=== PATIENT | male | born 1950 | race Caucasian/White ===

== ENCOUNTER 2022-06-10 22:35 | Emergency (ER) | payer OTHER, MEDICARE, SELFPAY ==
[2022-06-10] VITALS (8 sets, daily range): BP systolic 150–204; BP diastolic 68–86; PULSE 80–88; RESP 15–21; TEMP 36.6–36.7; O2SAT 94–99
--- NOTE | ~2022-06-10 | XR_ITS ---
EXAMINATION: XR chest 1V portable DATE: 06/10/2022 23:41 INDICATION: Shortness of breath. Palpitations. TECHNIQUE: frontal view of the chest was obtained. COMPARISON: None FINDINGS: The lungs are clear with no focal airspace opacities, pulmonary edema, pleural effusion or pneumothor ax. The cardiomediastinal silhouette is normal. Visualized bones and soft tissues are unremarkable. IMPRESSION: 1. No acute cardiopulmonary disease. Reviewed, dictated and finalized at location A.
--- NOTE | 2022-06-10 22:44 | ECG_ITS ---
Measurements Intervals [place] Rate: 84 P: 41 MN: 136 QRS: -18 QRSD: 102 T: 48 QT: 376 QTc: 447 Interpretive Statements SINUS RHYTHM BORDERLINE ST-T WAVE ABNORMALITY- ANT/INF LEADS BORDERLINE ECG NO PREVIOUS ECG AVAILABLE FOR COMPARISON Electronically Signed On 06-11-2022 7:54:23 CDT by Davide Box D.O.
--- NOTE | 2022-06-10 23:16 | ED.GENADULT ---
HPI - General Adult General Chief complaint: Arrhythmia/Palpitations Stated complaint: tachycardia/cardiac issues Time Seen by Provider: 06/10/22 22:48 History of Present Illness HPI narrative: Patient 72-year-old gentleman who presents the emergency department with chief complaint of palpitations. Patient reports that he was sitting down to watch soccer and started getting sweaty and felt as though his heart was beating fast. Patient reports that his Apple Watch reported that his heart rate was 130 patient states the symptoms lasted for about 30 minutes. Patient states currently he feels much better is not having any chest pain and reports that his heart rate has slowed down. Patient also reports that for some time he has been having some shortness of breath Course Vital Signs Vital signs: Vital Signs Temperature 36.7 C 06/10/22 22:37 Pulse Rate 80 06/10/22 22:37 Respiratory Rate 18 06/10/22 22:37 Blood Pressure 204/76 H 06/10/22 22:37 Pulse Oximetry 99 06/10/22 22:37 Oxygen Delivery Room Air 06/10/22 22:37 Temperature 36.6 C 06/10/22 23:00 Pulse Rate 80 06/11/22 00:47 Respiratory Rate 19 06/11/22 00:02 Blood Pressure 148/80 H 06/11/22 00:02 Pulse Oximetry 91 06/11/22 00:02 Oxygen Delivery Room Air 06/10/22 22:37 Medical Decision Making [facility] Narrative Medical decision making narrative: Differential diagnosis includes ACS, dysrhythmia electrolyte abnormality EKG interpreted by me sinus rhythm rate of [address] elevation or ST depression Laboratory studies were obtained showed a white blood cell count of 12.1 electrolytes are within normal limits troponin is less than 0.12 Chest x-ray interpreted by me showed no evidence of focal infiltrate. Vital Signs Vital Signs: Vital Signs Temperature 36.7 C 06/10/22 22:37 Pulse Rate 80 06/10/22 22:37 Respiratory Rate 18 06/10/22 22:37 Blood Pressure 204/76 H 06/10/22 22:37 Pulse Oximetry 99 06/10/22 22:37 Oxygen Delivery Room Air 06/10/22 22:37 Temperature 36.6 C 06/10/22 23:00 Pulse Rate 80 06/11/22 00:47 Respiratory Rate 19 06/11/22 00:02 Blood Pressure 148/80 H 06/11/22 00:02 Pulse Oximetry 91 06/11/22 00:02 Oxygen Delivery Room Air 06/10/22 22:37 Lab Data 06/10/22 23:27 06/10/22 23:27 Labs: Lab Results 06/10/22 06/10/22 06/10/22 Range/Units 23:27 23:27 23:27 WBC 12.1 H (4.5-10.0) K/mm3 RBC 5.03 (4.6-6.20) M/mm3 Hgb 15.2 (14.0-18.0) g/dL Hct 47.7 (42.0-52.0) % MCV 94.8 (80-100) fl MCH 30.2 (26-34) pg MCHC 31.9 L (32-36) g/dl RDW 13.2 (11.5-14.5) % Plt Count 316 (150-375) k/mm3 MPV 9.6 (7.4-10.4) fl Immature Gran % (Auto) 0.3 (0-0.5) % Neut % (Auto) 63.6 (45.5-73.1) % Lymph % (Auto) 21.4 (18.3-44.2) % [place] % (Auto) 9.0 H (2.6-8.5) % Eos % (Auto) 5.0 H (0-4.4) % Baso % (Auto) 0.7 (0.2-1.2) % Lymph # (Auto) 2.58 (0.9-3.2) K/mm3 [place] # (Auto) 1.1 H (0.1-0.6) K/mm3 Eos # (Auto) 0.6 H (0-0.3) K/mm3 Baso # (Auto) 0.1 (0.0-0.1) K/mm3 Abs Immat Gran (auto) 0.04 H (0.00-0.031) K/mm3 Absolute Neuts (auto) 7.7 H (1.3-6.7) K/mm3 Absolute Nucleated RBC 0.0 (0.0-0.012) K/mm3 Nucleated RBC % 0.0 (0.0-0.2) % PT 12.8 (11.1-14.7) Seconds INR 1.0 APTT 31.4 (22.3-36.8) SECONDS Sodium 139 (137-145) mmol/L Potassium 3.9 (3.4-5.0) mmol/L Chloride 101 (98-107) mmol/L Carbon Dioxide 31 H (22-30) mmol/L Anion Gap 7 L (8-16) mmol/L BUN 20 (9-20) mg/dL Creatinine 1.10 (0.7-1.3) mg/dL Estim Creat Clear Calc 72 ml/min Estimated GFR > 60 (59 - ) Glucose 109 (65-110) mg/dL Calcium 9.1 (8.4-10.2) mg/dL Magnesium 2.5 H (1.6-2.3) mg/dL Total Bilirubin 0.5 (0.2-1.3) mg/dL AST 29 (17-59) U/L ALT 27 (6-50) U/L Alkaline Phosphatase 85 (38-126) U/L Troponin I < 0.012 (0.
[2022-06-10 23:36] LABS: Basophils Absolute Auto 0.1 K/mm3 (0.0-0.1); Basophils Percent Auto 0.7 % (0.2-1.2); Eosinophils Absolute Auto 0.6 K/mm3 (0-0.3); Hematocrit 47.7 % (42.0-52.0); Hemoglobin 15.2 g/dL (14.0-18.0); Immature Granulocyte Absolute 0.04 K/mm3 (0.00-0.031); Immature Granulocyte Percent A 0.3 % (0-0.5); Lymphocytes Absolute Auto 2.58 K/mm3 (0.9-3.2); Lymphocytes Percent Auto 21.4 % (18.3-44.2); Mean Corpuscular HGB Conc 31.9 g/dl (32-36); Mean Corpuscular Hemoglobin 30.2 pg (26-34); Mean Corpuscular Volume 94.8 fl (80-100); Mean Platelet Volume 9.6 fl (7.4-10.4); Monocytes Absolute Auto 1.1 K/mm3 (0.1-0.6); Neutrophils Absolute Auto 7.7 K/mm3 (1.3-6.7); Neutrophils Percent Auto 63.6 % (45.5-73.1); Platelet Count Result 316 k/mm3 (150-375); Red Blood Count 5.03 M/mm3 (4.6-6.20); Red Cell Distribution Width 13.2 % (11.5-14.5); White Blood Count 12.1 K/mm3 (4.5-10.0)
[2022-06-10 23:48] LABS: Prothrombin Time 12.8 Seconds (11.1-14.7)
[2022-06-10 23:50] LABS: Partial Thromboplastin Time 31.4 SECONDS (22.3-36.8)
[2022-06-11] VITALS: PULSE 86; RESP 21; O2SAT 94
[2022-06-11 00:02] VITALS: BP 148/80; PULSE 83; RESP 19; O2SAT 91
[2022-06-11 00:32] LABS: Alanine Aminotransferase 27 U/L (6-50); Albumin Level 4.4 g/dL (3.5-5.1); Alkaline Phosphatase 85 U/L (38-126); Anion Gap 7 mmol/L (8-16); Aspartate Amino Transferase 29 U/L (17-59); Bilirubin,Total 0.5 mg/dL (0.2-1.3); Blood Urea Nitrogen 20 mg/dL (9-20); Calcium 9.1 mg/dL (8.4-10.2); Carbon Dioxide 31 mmol/L (22-30); Chloride 101 mmol/L (98-107); Estimated CRCL calculation 72 ml/min; Estimated Glomerular Filt Rate > 60; Glucose 109 mg/dL (65-110); Lipase 88 U/L (23-300); Magnesium 2.5 mg/dL (1.6-2.3); NT Pro B Type Natriuretic Pept 40 pg/mL (19.9-100); Potassium 3.9 mmol/L (3.4-5.0); Sodium 139 mmol/L (137-145); Troponin I < 0.012 ng/mL (0.000-0.034)
[2022-06-11 00:47] VITALS: PULSE 80
[2022-06-11 01:26] VITALS: BP 141/89; PULSE 84; RESP 18; TEMP 36.6; O2SAT 99
== END 2022-06-11 01:26 | disposition home or self-care (01) ==
PROVIDERS: Emergency Provider Emergency Medicine; PCP Internal Medicine
DX: R00.2 Palpitations (principal)
CPT/HCPCS: 36415; 71045; 80053; 83690; 83735; 83880; 84484; 85025; 85610; 85730; 93005; 99283; 99284

== ENCOUNTER 2024-11-03 14:13 | Outpatient (CLI) | payer OTHER, MEDICARE, SELFPAY ==
--- NOTE | ~2024-11-03 | US_ITS ---
US retroperitoneal comp 11/03/2024 15:00 Procedure: Realtime transabdominal ultrasound of the kidneys and bladder. Indication: Chronic kidney disease Comparison: No prior studies for comparison. Findings: Renal echotexture is normal bilaterally without hydronephrosis, contour deforming mass or r enal calculus. The right kidney measures 9.9 cm and left kidney measures 11 cm. Bladder within nor mal limits. There right renal cysts, largest measuring 3.2 cm. Impression: 1: Right renal cysts. Reviewed, dictated and finalized at location A. Impression: 1: Right renal cysts.
--- OUTSIDE RECORDS SUMMARY | 2024-11-03 14:25 | XMS_ITS | Clinical Summary ---
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 Name Role Phone Deven Asif MD Primary Care Provider Encounters Date Type Department Care Team Description 09/30/2024 2:14 PM CDT - 09/30/2024 11:59 PM CDT Hospital Encounter [facility] [place] [address] Carson Sutton MD Discharge Disposition: Home or Self Care (Routine Discharge) 09/30/2024 Travel 09/29/2024 8:32 AM CDT - 09/29/2024 11:59 PM CDT Hospital [facility] [place] [address] Carson Sutton MD Discharge Disposition: Home or Self Care (Routine Discharge) 09/29/2024 Orders Only [facility] [place] [address] Carson Sutton MD 09/29/2024 Travel from Last 3 Months Social History Tobacco Use Types Packs/Day Years Used Date Smoking Tobacco: Never Assessed Sex and Gender Information Value Date Recorded Sex Assigned at Male 09/29/2024 8:16 AM CDT Legal Sex Male 8:16 AM CDT Gender Identity Not on file Sexual Orientation Not on file Plan of Treatment Health Maintenance Due Date Last Done Comments Colorectal Cancer Screening Colonoscopy (10 Years) 1950 Lipid Panel 1950 Diabetes: Retinopathy Eye Exam 1969 Hepatitis C 1968 Annual Medicare Wellness Visit 02/23/2016 COVID-19 Vaccine ( season) 2023 01/11/2023, 10/17/2021, 03/29/2021, Additional history exists Hemoglobin A1C 03/31/2025 09/29/2024 Kidney Health Evaluation 09/29/2025 09/29/2024, 09/02 RSV Immunization or 60+ Years (1 - 1-dose 75+ series) 2026 DTaP, Tdap and Td Vaccines (3 - Td or Tdap) 01/27/2032 01/26/2022, 05/27/2014 Pneumococcal Vaccine: 50+ Years Completed 06/23/2019, 03/21/2018 Zoster Vaccines Completed 05/25/2020, 11/18/2019 Meningococcal B Vaccine Aged Out No l onger eligible based on patient's age to complete this topic Meningococcal Vaccine Aged Out No leann gardenia eligible based on patient's age to complete this topic RSV Immunizations Under 20 Months Aged Out No longer eligible based on patient's age to complete this topic Procedures Procedure Name Priority Date/Time Associated Diagnosis Comments PROTEIN TOTAL URINE 24 HR Routine 09/29/2024 1:00 PM CDT Chronic renal disease, stage III (CMS/HCC) HTN (hypertension) Type 2 diabetes mellitus with hyperglycemia ([facility] HHS/HCC) Edema Screening for prostate cancer Hyperparathyroidism, unspecified ([facility]/HCC) Vitamin D deficiency Frequent urination Abnormal urine findings Urinary tract infection, site not specified Urinary frequency History of prostate cancer CREATININE URINE 24 HR Routine 09/29/2024 1:00 PM CDT Chronic renal disease, stage III (CMS/HCC) HTN (hypertension) Type 2 diabetes mellitus with hyperglycemia ([facility]/HCC HHS/HCC) Edema Screening for prostate cancer Hyperparathyroidism, unspecified (HHS/HCC) Vitamin D deficiency Frequent urination Abnormal urine findings Urinary tract infection, site not specified Urinary frequency History of prostate cancer CBC W/DIFF AUTOMATED Routine 09/29/2024 9:02 AM CDT Chronic renal disease, stage III (CMS/HCC) HTN (hypertension) Type 2 diabetes mellitus with hyperglycemia ([facility]/HCC HHS/HCC) Frequent urination Abnormal urine findings Urinary tract infection, site not specified VITAMIN D, 25 OH Routine 09/29/2024 8:53 AM CDT Vitamin D deficiency PTH - INTACT Routine 09/29/2024 8:53 AM CDT Chronic renal disease, stage III (CMS/HCC) HTN (hypertension) Type 2 diabetes mellitus with hyperglycemia (CMS/HCC HHS/HCC) Edema Screening for prostate cancer Hyperparathyroidism, unspecified (HHS/HCC) Vitamin D deficiency PROSTATE SPECIFIC ANTIGEN,SCREENING Routine 09/29/2024 8:53 AM CDT Chronic renal disease, stage III (CMS/HCC) HTN (hypertension) Type 2 diabetes mellitus with hyperglycemia (CMS/HCC HHS/HCC) Edema Screening for prostate cancer Hyperparathyroidism, unspecified (HHS/HCC) Vitamin D deficiency HEMOGLOBIN, GLYCOSYLATED Routine 09/29/2024 8:53 AM CDT Chronic renal disease, stage III (CMS/HCC) HTN (hypertension) Type 2 diabetes mellitus with hyperglycemia (CMS/HCC HHS/HCC) Edema Screening for prostate cancer Hyperparathyroidism, unspecified (HHS/HCC) URIC ACID BLOOD Routine 09/29/2024 8:53 AM CDT Chronic renal disease, stage III (CMS/HCC) HTN (hypertension) Type 2 diabetes mellitus with hyperglycemia (CMS/HCC HHS/HCC) Edema Screening for prostate cancer Hyperparathyroidism, unspecified (HHS/HCC) COMPREHENSIVE METABOLIC PANEL Routine 09/29/2024 8:53 AM CDT Chronic renal disease, stage III (CMS/HCC) HTN (hypertension) Type 2 diabetes mellitus with hyperglycemia (CMS/HCC HHS/HCC) Edema Screening for prostate cancer Hyperparathyroidism, unspecified (HHS/HCC) PROTEIN TOTAL URINE RANDOM Routine 09/29/2024 8:47 AM CDT Chronic renal disease, stage III (CMS/HCC) HTN (hypertension) Type 2 diabetes mellitus with hyperglycemia (CMS/HCC HHS/HCC) Edema Screening for prostate cancer Hyperparathyroidism, unspecified (HHS/HCC) Vitamin D deficiency Frequent urination Abnormal urine findings Urinary tract infection, site not specified ALBUMIN URINE RANDOM W/CREATININE Routine 09/29/2024 8:47 AM CDT Chronic renal disease, stage III ([facility]) HTN (hypertension) Type 2 diabetes mellitus with hyperglycemia ([facility] HHS/[facility]) Edema Screening for prostate cancer Hyperparathyroidism, unspecified ([facility]) Vitamin D deficiency Frequent urination Abnormal urine findings Urinary tract infection, site not specified URINALYSIS, AUTO, COMPLETE Routine 09/29/2024 8:47 AM CDT Frequent urination Abnormal urine findings Urinary tract infection, site not specified SODIUM URINE RANDOM Routine 09/29/2024 8 :45 AM CDT Chronic renal disease, stage III (CMS/HCC) Frequent urination Abnormal urine findings Urinary tract infection, site not specified POTASSIUM URINE RANDOM Routine 09/29/2024 8:45 AM CDT Chronic renal disease, stage III (CMS/HCC) Frequent urination Abnormal urine findings Urinary tract infection, site not specified CHLORIDE URINE RANDOM Routine 09/29/2024 8:45 AM CDT Chronic renal disease, stage III (CMS/HCC) Frequent urination Abnormal urine findings Urinary tract infection, site not specified OSMOLALITY, URINE Routine 09/29/2024 8:4 5 AM CDT Chronic renal disease, stage III (CMS/HCC) Frequent urination Abnormal urine findings Urinary tract infection, site not specified from Last 3 Months Results * (ABNORMAL) PROTEIN TOTAL URINE 24 HR (09/29/2024 1:00 PM CDT) PROTEIN URINE TOTAL RANDOM 13.6(H) <10 MG/DL 09/30/2024 3:45 PM CDT [facility] TOTAL PROTEIN 24HR (U) 204(H) <150 MG/24HR 09/30/2024 3:45 PM CDT [facility] VOLUME (U) 1,500 ML 09/30/2024 3:45 PM CDT [facility] URINE SPECIMEN / Unknown 09/29/2024 1:00 PM CDT us Carson Sutton MD URINE ORDERABLES Final Result Performing Organization Address [facility] Co de Phone Number [facility] [address] [place] [address], [place] [phone] * CREATININE URINE 24 HR (09/29/2024 1:00 PM CDT) CREATININE (U) 132.0 39 - 259 MG/DL 09/30/2024 3:43 PM CDT [facility] 24 HR VOL (MLS) 1,500 ML 3:43 PM CDT [facility] WEIGHT 254 LBS 09/30/2024 3:43 PM CDT [facility] CREATININE 24HR (U) 2.0 1.0 - 2.3 GM/24HR 09/30/2024 3:43 PM CDT [facility] CREATININE/24 HRS 17.1 14.0 - 26.0 mg/kg/24HR S 09/30/2024 3:43 PM CDT [facility] URINE SPECIMEN / Unknown 09/29/2024 1:00 PM CDT us Carson Sutton MD URINE ORDERABLES Final Result Performing Organization Address City/[facility]/ZIP Co de Phone Number [facility] [address] [place] [address], [place] [phone] * (ABNORMAL) CBC W/DIFF AUTOMATED (09/29/2024 9:02 AM CDT) WBC 10.97 4.5 - 11.0 x10'3/uL 09/29/2024 9:53 AM CDT [facility] RBC 4.76 4.70 - 6.10 x10'6/uL 09/29/2024 9:53 AM CDT [facility] HGB 14.2 14.0 - 18.0 G/DL 09/29/2024 9:53 AM CDT [facility] HCT 43.1 43.0 - 54.0 % 09/29/2024 9:53 AM CDT [facility] MCV 90.5 80.0 - 94.0 FL 09/29/2024 9:53 AM CDT [facility] MCH 29.8 27.0 - 31.0 PG 09/29/2024 9:53 AM CDT [facility] MCHC 32.9 32.0 - 36.0 G/DL 09/29/2024 9:53 AM CDT [facility] RDW 13.1 11.5 - 14.5 % 09/29/2024 9:53 AM CDT [facility] PLT 334 130 - 400 x10'3/uL 09/29/2024 9:53 AM CDT [facility] MPV 9.6 9.3 - 12.2 FL 09/29/2024 9:53 AM CDT [facility] DIFFERENTIAL TYPE AUTOMATED DIFFERENTIAL 09/29/2024 9:53 AM CDT [facility] NEUTROPHILS % 68.9 % 09/29/2024 9:53 AM CDT [facility] LYMPHOCYTES % 17.4 % 09/29/2024 9:53 AM CDT [facility] MONOCYTES % 8.2 % 09/29/2024 9:53 AM CDT [facility] EOSINOPHILS 3.5 % 09/29/2024 9:53 AM CDT [facility] BASOPHILS 0.8 % 09/29/2024 9:53 AM CDT [facility] IMMATURE GRANS % 1.2 % 09/30/19 9:53 AM CDT [facility] ABS. NEUTROPHILS 7.56 1.80 - 7.70 x10'3/uL 09/29/2024 9:53 AM CDT [facility] ABS. LYMPHOCYTES 1.91 1.00 - 4.80 x10'3/uL 09/29/2024 9:53 AM CDT [facility] ABS. MONOCYTES 0.90(H) 0.30 - 0.82 x10'3/uL 09/29/2024 9:53 AM CDT [facility] ABS. EOSINOPHILS 0.38 0.04 - 0.54 x10'3/uL 09/29/2024 9:53 AM CDT [facility] ABS. BASOPHILS 0.09(H) 0.01 - 0.08 x10'3/uL 09/29/2024 9:53 AM CDT [facility] ABS. IMMATURE GRANULOCYTES 0.13 0.00 - 0.49 x10'3/uL 09/29/2024 9:53 AM CDT [facility] 09/29/2024 9:02 AM CDT Carson Sutton MD LABORATORY Final Result [facility] [address] [place] [address], [place] [phone] * PTH - INTACT (09/29/2024 8:53 AM CDT) PTH INTACT 54.3 18.4 - 80.1 PG/ML 09/29/2024 9:59 AM CDT [facility] 09/29/2024 8:53 AM CDT Carson Sutton MD LABORATORY Final Result [facility] [address] [place] [address], [place] [phone] * (ABNORMAL) HEMOGLOBIN, GLYCOSYLATED (09/29/2024 8:53 AM CDT) HGB A1C 5.8(H) <5.7 % 09/29/2024 11:02 AM CDT [facility] Comment: ADA GUIDELINES 2010 5.7 TO 6.4% INCREASED RISK OF DIABETES > OR = 6.5% CONSISTENT WITH DIABETES ESTIMATED AVG GLUCOSE 120 mg/dL 09/29/2024 11:02 AM CDT [facility] 09/29/2024 8:53 AM CDT Carson Sutton MD LABORATORY Final Result Performing Organization Address [facility] Co de Phone Number [facility] [address] [place] [address], [place] [phone] * (ABNORMAL) PROSTATE SPECIFIC ANTIGEN,SCREENING (09/29/2024 8:53 AM CDT) PSA 4.67(H) <4.00 NG/ML 09/29/2024 11:58 AM CDT [facility] Comment: Test was performed using the Siemens method. Results obtained with other assay methods or kits cannot be used interchangeably with results obtained by the Siemens method. 09/29/2024 8:53 AM CDT us Carson Sutton MD LABORATORY Final Result [facility] [address] [place] [address], [place] [phone] * (ABNORMAL) COMPREHENSIVE METABOLIC PANEL (09/29/2024 8:53 AM CDT) [facility] GLUCOSE 94 70 - 99 MG/DL 09/29/2024 11:39 AM CDT [facility] BUN 29(H) 7 - 18 MG/DL 09/29/2024 11:39 AM CDT [facility] CREATININE S/P/B 1.44(H) 0.7 - 1.3 MG/DL 09/29/2024 11:39 AM CDT [facility] SODIUM S/P/B 139 136 - 145 MMOL/L 09/29/2024 11:39 AM CDT [facility] POTASSIUM S/P/B 3.8 3.5 - 5.1 MMOL/L 09/29/2024 11:39 AM CDT [facility] CHLORIDE S/P/B 105 97 - 115 MMOL/L 09/29/2024 11:39 AM CDT [facility] CO2 29.0 21 - 32 MMOL/L 09/29/2024 11:39 AM CDT [facility] CALCIUM S/P/B 9.4 8.5 - 10.1 MG/DL 09/29/2024 11:39 AM CDT [facility] BILIRUBIN TOTAL S/P/B 0.7 0.2 - 1.2 MG/DL 09/29/2024 11:39 AM CDT [facility] Comment: THIS ASSAY IS NOT RECOMMENDED FOR PATIENTS UNDERGOING TREATMENT WITH ELTROMBOPAG DUE TO THE POTENTIAL FOR FALSELY ELEVATED RESULTS. TOTAL PROTEIN S/P/B 7.8 6.4 - 8.2 G/DL 09/29/2024 11:39 AM CDT [facility] ALBUMIN S/P/B 3.7 3.4 - 5.0 G/DL 09/29/2024 11:39 AM CDT [facility] AST 48(H) 15 - 37 U/L 09/29/2024 11:39 AM CDT [facility] ALT 45 16 - 60 U/L 09/29/2024 11:39 AM CDT [facility] ALKALINE PHOSPHATASE S/P/B 75 50 - 136 U/L 09/29/2024 11:39 AM CDT [facility] ANION GAP 5.0 2 - 10 MMOL/L 09/29/2024 11:39 AM T [facility] BUN CREATININE RATIO 20.1 6 - 26 09/29/2024 11:39 AM T [facility] A/G RATIO 0.9(L) 1.0 - 2.0 RATIO 09/29/2024 11:39 AM T [facility] GFR ESTIMATE 51(L) >90 ML/MIN/1.7 3 M2 09/29/2024 11:39 AM T [facility] Comment: NOTE: eGFR is not calculated for patients <18 years of age or gender unknown. This is an estimated GFR calculation using the new CKD EPI creatinine equation without race and so does not require a correction factor for race. This estimated GFR should not be used for calculating drug doses. 09/29/2024 8:53 AM CDT Carson Sutton MD LABORATORY Final Result [facility] [address] [place] [address], [place] [phone] * VITAMIN D, 25 OH (09/29/2024 8:53 AM CDT) VITAMIN D 25 HYDROXY S/P/B 46 30 - 100 NG/ML 09/29/2024 10:05 AM CDT [facility] Comment: INTERPRETATION DEFICIENT <20 INSUFFICIENT 20-29 SUFFICIENT 30-100 09/29/2024 8:53 AM CDT us Carson Sutton MD LABORATORY Final Result Performing Organization Address [facility] Co de Phone Number [facility] [address] [place] [address], [place] [phone] * (ABNORMAL) URIC ACID BLOOD (09/29/2024 8:53 AM CDT) URIC ACID 13.2(H) 3.5 - 7.2 MG/DL 09/29/2024 11:39 AM CDT [facility] 09/29/2024 8:53 AM CDT us Carson Sutton MD LABORATORY Final Result Performing Organization Address [facility] Co de Phone Number [facility] [address] [place] [address], [place] [phone] * (ABNORMAL) PROTEIN TOTAL URINE RANDOM (09/29/2024 8:47 AM CDT) PROTEIN URINE TOTAL RANDOM 20.7(H) <10 MG/DL 09/29/2024 10:08 AM CDT [facility] URINE SPECIMEN / Unknown 09/29/2024 8:47 AM CDT us Carson Sutton MD URINE ORDERABLES Final Result Performing Organization Address City/[facility] Co de Phone Number [facility] [address] [place] [address], [place] [phone] * (ABNORMAL) URINALYSIS, AUTO, COMPLETE (09/29/2024 8:47 AM CDT) SPECIMEN TYPE URINE CLEAN CATCH 09/29/2024 8:48 AM CDT [facility] COLOR (U) LIGHT YELLOW 09/29/2024 9:49 AM CDT [facility] TRANSPARENCY CLEAR 09/29/2024 9:49 AM CDT [facility] SPECIFIC GRAVITY (U) 1.020 1.001 - 1.030 09/29/2024 9:49 AM CDT [facility] U PH 5.0 5.0 - 9.0 09/29/2024 9:49 AM CDT [facility] LEUKOCYTES (U) NEGATIVE NEGATIVE 09/29/2024 9:49 AM CDT [facility] NITRITES NEGATIVE NEGATIVE 09/29/2024 9:49 AM T [facility] PROTEIN RANDOM (U) NEGATIVE <30 MG/DL 09/29/2024 9:49 AM T [facility] GLUCOSE (U) NORMAL NORMAL MG/DL 09/29/2024 9:49 AM T [facility] KETONES MG/DL (U) 10(A) NEGATIVE MG/DL 09/29/2024 9:49 AM T [facility] UROBILINOGEN NORMAL NORMAL MG/DL 09/29/2024 9:49 AM T [facility] BILIRUBIN (U) NEGATIVE NEGATIVE MG/DL 09/29/2024 9:49 AM CDT [facility] BLOOD (U) NEGATIVE NEGATIVE 09/29/2024 9:49 AM CDT [facility] MUCUS RARE /LPF 09/29/2024 9:49 AM CDT [facility] HYALINE CASTS RARE /LPF 09/29/2024 9:49 AM CDT [facility] WBC/HPF 1 <6 /HPF 09/29/2024 9:49 AM CDT [facility] URINE SPECIMEN OBTAINED BY CLEAN CATCH PROCEDURE / Unknown 09/29/2024 8:47 AM CDT us Carson Sutton MD URINE ORDERABLES Final Result Performing Organization Address [facility] Co de Phone Number [facility] [address] [place] [address], [place] [phone] * MICROALBUMIN CREAT RATIO, URINE RANDOM (09/29/2024 8:47 AM CDT) CREATININE (U) 170.0 39 - 259 MG/DL 09/29/2024 10:08 AM CDT [facility] MICROALBUMIN (U) 0.7 <2.0 mg/dL 09/30/19 10:08 AM CDT [facility] ALBUMIN/CREAT RATIO 4.0 <30 MG/G 09/29/2024 10:08 AM CDT [facility] URINE SPECIMEN / Unknown 09/29/2024 8:47 AM CDT us Carson Sutton MD URINE ORDERABLES Final Result Performing Organization Address City/[facility]/ZIP Co de Phone Number [facility] [address] [place] [address], [place] [phone] * SODIUM URINE RANDOM (09/29/2024 8:45 AM CDT) NA RANDOM (U) 56 MMOL/L 09/29/2024 2:28 PM CDT [facility] Comment:REFERENCE RANGE NOT ESTABLISHED URINE SPECIMEN / Unknown 09/29/2024 8:45 AM CDT us Carson Sutton MD URINE ORDERABLES Final Result Performing Organization Address [facility] Co de Phone Number [facility] [address] [place] [address], [place] [phone] * POTASSIUM URINE RANDOM (09/29/2024 8:45 AM CDT) K RANDOM (U) 41.7 MMOL/L 09/29/2024 2:28 PM CDT [facility] Comment:REFERENCE RANGE NOT ESTABLISHED URINE SPECIMEN / Unknown 09/29/2024 8:45 AM CDT us Carson Sutton MD URINE ORDERABLES Final Result Performing Organization Address [facility] de Phone Number [facility] [address] [place] [address], [place] [phone] * CHLORIDE URINE RANDOM (09/29/2024 8:45 AM CDT) CHLORIDE RANDOM (U) 70 MMOL/L 09/29/2024 2:28 PM CDT [facility] Comment:REFERENCE RANGE NOT ESTABLISHED URINE SPECIMEN / Unknown 09/29/2024 8:45 AM CDT us Carson Sutton MD URINE ORDERABLES Final Result Performing Organization Address [facility] de Phone Number [facility] [address] [place] [address], [place] [phone] * OSMOLALITY, URINE (09/29/2024 8:45 AM CDT) OSMOLALITY (U) 682 50 - 1,200 MOSM/KG 09/29/2024 9:48 AM CDT [facility] URINE SPECIMEN / Unknown 09/29/2024 8:45 AM CDT us Carson Sutton MD URINE ORDERABLES Final Result [facility] [address] [place] [address], from Last 3 Months Insurance AET Care Teams Carpet Or Rug Layer Helper Relationship Specialty Start Date End Date Deven Asif MD [address] [facility] [address] [place] [id number] PCP - General INTERNAL MEDICINE 09/29/24
--- OUTSIDE RECORDS SUMMARY | 2024-11-03 14:25 | XMS_ITS | Clinical Summary ---
Author Organization [facility] Facility Address [address] [place] [id number] Care Team Providers Care Tinsmith Apprentice Name Role Phone Deven Asif MD Primary Care Provider [phone] Allergies Active Allergy Reactions Criticality Noted Date Comments Amlodipine Other (see comments),Swelling 2017 Furosemide 05/02/2018 Lisinopril Other (see comments) 04/25/2017 Medications albuterol HFA (PROVENTIL HFA;VENTOLIN HFA) 108 (90 Base) MCG/ACT inhaler Inhale 1 puff if needed Active aspirin (ST ERIN) 81 MG EC tablet aspirin 81 mg tablet,delayed release Take 1 tablet every day by oral route. 8 Active cholecalciferol (VITAMIN D-3) 125 MCG (5000 UT) capsule Take by mouth 8 Active metFORMIN (GLUCOPHAGE) 500 MG tablet metformin 500 mg tablet TAKE 1 TABLET BY MOUTH TWICE DAILY 8 Active rosuvastatin (CRESTOR) 20 MG tablet Take 20 mg by mouth 1 (one) time each day 8 Active valsartan (DIOVAN) 160 MG tablet valsartan 160 mg tablet 8 Active Calcium Carbonate 500 MG chewable tablet Chew 500 mg 1 (one) time each day 90 tablet 3 2 Active hydroCHLOROthia zide 25 MG tablet Take 25 mg by mouth 1 (one) time each day Active hydroCHLOROthia zide 12.5 MG tablet Take 12.5 mg by mouth 1 (one) time each day 2 Active Active Problems Problem Noted Date Diagnosed Date Gout 04/14/2021 Essential hypertension 04/14/2021 Iron deficiency 05/02/2018 Moderate chronic obstructive pulmonary disease 0 09/21/2017 Diabetes mellitus 04/26/2017 Sleep apnea 04/25/2017 Dyspnea on exertion 07/20/2016 Family History Medical History Relation Comments Stroke Father Diabetes Mother Heart disease Mother Stroke Mother Hypertension Sister Relation Status Comments Father Mother Sister Social History Tobacco Use Types Packs/Day Years Used Date Smoking Tobacco: Never Smokeless Tobacco: Never Alcohol Use Standard Drinks/Week Comments Never 0 (1 standard drink = 0.6 oz pur e alcohol) Sex and Gender Information Value Date Recorded Sex Assigned at Not on file Legal Sex Male 2:20 PM EST Gender Identity Not on file Sexual Orientation Not on file Last Filed Vital Signs Vital Sign Reading Time Taken Comments Blood Pressure 125/75 09/12/2021 12:52 PM CDT Pulse 65 09/12/2021 12:52 PM CDT Temperature 36.9 C (98.4 F) 09/12/2021 12:52 PM CDT Respiratory Rate 18 09/12/2021 12:52 PM CDT Oxygen Saturation 97% 09/12/2021 12:52 PM CDT Inhaled Oxygen Concentration - - Weight 132 kg (290 lb 9.6 oz) 09/12/2021 12:52 P M CDT Height 175.3 cm (5' 9) 09/12/2021 12:52 PM CDT Body Mass Index 42.91 09/12/2021 12:52 PM CDT Plan of Treatment Health Maintenance Due Date Last Done Comments Colorectal Cancer Screening: Annual FOBT 02/23/2000 Colorectal Cancer Screening: Colonoscopy 02/23/2000 Colorectal Cancer Screening: Sigmoidoscopy 02/23/2000 Diabetes: Ophthalmology Exam 03/15/2021 Diabetes: Pedal Pulse Checked 03/15/2021 Diabetes: Sensory Foot Exam 03/15/2021 Diabetes: Visual Foot Exam 03/15/2021 Diabetes: Hemoglobin A1C 11/10/2021 08/10/2021, 12/05/2020 Influenza Vaccine (#1) 2024 , 02/12/2019, 03/07/2018, Additional history exists Pneumococcal Vaccine: 50+ Years Completed 06/23/2019, 03/21/2018 Hepatitis B Vaccine Aged Out No longe r eligible based on patient's age to complete this topic Procedures Procedure Name Priority Date/Time Associated Diagnosis Comments EXT RESULT ENTRY Routine 08/10/2021 from Last 3 Months or Most Recently Relevant to Health Maintenance Results * (ABNORMAL) EXT RESULT ENTRY (08/10/2021) WBC 9.2 3.3 - 10.0 10*3/ML Red Blood Cell Count 4.70 Hemoglobin 14.0 13.5 - 17.5 Hematocrit 44.5 41.0 - 53.0 Platelets 274 150 - 399 10*3/UL Sodium 140 137 - 147 Potassium 4.6 3.4 - 5.5 Chloride 106.0 99.0 - 108.0 Bicarbonate (CO2) 29 22 - 30 mmol/L Anion Gap 10 <=30 MMOL/L Glucose 129 60 - 200 BUN 21 4 - 21 mg/dL Creatinine 1.13 0.60 - 1.30 mg/dL Total Protein 6.7 6.4 - 8.2 G/DL Albumin 3.7 3.5 - 5.0 g/dL Calcium 8.5(A) 8.7 - 10.7 mg/dL Phosphorus, Serum 3.9 eGFR Non-Afr Croatian >60 Magnesium 2.2 1.6 - 2.4 Vitamin D, 25-OH, Total 43.9 ng/mL Hemoglobin A1C 6.0 4.0 - 6.0 Microalbumin Urine Random (External Result Entry) 8.2 Triglycerides 101 40 - 160 Cholesterol 111 0 - 200 HDL 41(A) 35 - 70 MG/DL LDL Calculated 50 0 - 160 mg/dL 08/10/2021 us Historical Provider LAB BLOOD ORDERABLES Shanika fiore Result from Last 3 Months or Most Recently Relevant to Health Maintenance Insurance [facility] [employer] MCR Adv PPO ([id number]) Care Teams Tinsmith Apprentice Relationship Specialty Start Date End Date Deven Asif MD PCP - General Internal Medicine 03/15/21
== END 2024-11-03 14:14 | disposition home or self-care (01) ==
PROVIDERS: PCP Internal Medicine; Visit Provider Specialist
DX: N28.1 Cyst of kidney, acquired (principal); N18.31 Chronic kidney disease, stage 3a
CPT/HCPCS: 76770